=== PATIENT | male | born 2000 | race Two or more races ===

== ENCOUNTER 2024-11-18 09:05 | Emergency (ER) | payer MEDICAID, SELFPAY ==
[2024-11-18 09:24] VITALS: BP 135/77; PULSE 93; RESP 18; TEMP 37.1; O2SAT 98
--- NOTE | 2024-11-18 09:30 | XR_ITS ---
Examination: CT lumbar spine, without contrast. 2-D sagittal reconstructions. 2-D coronal reconstructions. 3-D reconstructions. Date and time of exam:November 18, 2024, 1027 hours INDICATIONS: Patient fell yesterday with injury to the lower back, lower back pain CTDI: vol (mGy):40.7 DLP: (mGycm):1257 Technique: Multiple 1.25 mm axial sections of the lumbar spine without intravenous contrast have been obtained. 2-D sagittal and coronal reconstructions have been obtained. 3-D reconstructions have been obtained. Low dose protocols were performed. One or more of the following dose reduction techniques were used; automated exposure control, adjustment of the mA and/or KV according to patient size, use of iterative reconstruction technique. Findings: Satisfactory alignment lumbar vertebral bodies No lumbar vertebral body compression fracture Acute fracture with mild offset right transverse process L2-L3 Sacral segments appear intact No focal lumbar disc protrusion IMPRESSION: No lumbar vertebral body compression fractures Acute fractures right transverse processes L2, L3
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
[2024-11-18] MEDS: KETOROLAC INJ 60 MG/2 ML VIAL 30 MG IM (10:02)
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
[2024-11-18 12:46] VITALS: BP 119/62; PULSE 69; RESP 18; TEMP 36.8; O2SAT 98
[2024-11-18] MEDS: DIPHTH,PERTUSS(ACELL),TET VAC 0.5 ML SYR- ADULT IMi (13:06)
== END 2024-11-18 13:09 | disposition home or self-care (01) ==
PROVIDERS: Emergency Provider Family Medicine
DX: S32.029A Unspecified fracture of second lumbar vertebra, initial encounter for closed fracture (principal); S32.039A Unspecified fracture of third lumbar vertebra, initial encounter for closed fracture; S29.9XXA Unspecified injury of thorax, initial encounter; W17.89XA Other fall from one level to another, initial encounter; Z23 Encounter for immunization
CPT/HCPCS: 71045; 72131; 90471; 90715; 96372; 99284; J1885